=== PATIENT | female | born 1950 | race Caucasian/White ===

== ENCOUNTER 2016-09-15 15:19 | Outpatient (CLI) | payer OTHER ==
--- NOTE | 2016-09-15 18:17 | DIAGNOSTIC IMAGING REPORT ---
PROCEDURE: US BILATERAL CAROTID DOPPLER INDICATION: LT BRUIT,AMAUROSIS,HEAD INJURY,HX TIA TECHNIQUE: Color Doppler duplex imaging of the carotid and vertebral vessels. COMPARISON: None. FINDINGS: Intimal thickening of the bilateral common carotid arteries. Mild plaque formation of the bifurcations bilaterally. Right common carotid artery peak systolic velocity 46 cm/second. Right internal carotid artery peak systolic velocity 96 cm/second. Right external carotid artery peak systolic velocity 71 cm/second. Right fhymdgzg-kk-fdbbrt carotid artery ratio 2.1 Right vertebral artery peak systolic velocity 56 cm/second antegrade. Left common carotid artery peak systolic velocity 49 cm/second. Left internal carotid artery peak systolic velocity 96 cm/second. Left external carotid artery peak systolic velocity 92 cm/second. Left ynwruwsr-yf-zxgvoe carotid artery ratio 1.9 Left vertebral artery peak systolic velocity 35 cm/second antegrade. IMPRESSION: 1. Mild plaque formation of the bifurcations bilaterally without hemodynamically significant lesion 2. Bilateral ICA 16-49% stenosis Velocity criteria are extrapolated from diameter data as defined by the Society of Radiologists in Ultrasound Consensus Conference, Radiology 2003; 229; 340-346.
--- NOTE | 2016-09-15 18:17 | DIAGNOSTIC IMAGING REPORT ---
PROCEDURE: US BILATERAL CAROTID DOPPLER INDICATION: LT BRUIT,AMAUROSIS,HEAD INJURY,HX TIA TECHNIQUE: Color Doppler duplex imaging of the carotid and vertebral vessels. COMPARISON: None. FINDINGS: Intimal thickening of the bilateral common carotid arteries. Mild plaque formation of the bifurcations bilaterally. Right common carotid artery peak systolic velocity 46 cm/second. Right internal carotid artery peak systolic velocity 96 cm/second. Right external carotid artery peak systolic velocity 71 cm/second. Right cjafivpd-na-faddzi carotid artery ratio 2.1 Right vertebral artery peak systolic velocity 56 cm/second antegrade. Left common carotid artery peak systolic velocity 49 cm/second. Left internal carotid artery peak systolic velocity 96 cm/second. Left external carotid artery peak systolic velocity 92 cm/second. Left nncnyxuc-ag-xulkoi carotid artery ratio 1.9 Left vertebral artery peak systolic velocity 35 cm/second antegrade. IMPRESSION: 1. Mild plaque formation of the bifurcations bilaterally without hemodynamically significant lesion 2. Bilateral ICA 16-49% stenosis Velocity criteria are extrapolated from diameter data as defined by the Society of Radiologists in Ultrasound Consensus Conference, Radiology 2003; 229; 340-346.
--- NOTE | 2016-09-15 19:39 | DIAGNOSTIC IMAGING REPORT ---
PROCEDURE: CT HEAD WITHOUT CONTRAST INDICATION: LT BRUIT,AMAUROSIS,HEAD INJURY,HX TIA TECHNIQUE: Noncontrast axial images with sagittal and coronal reformations. COMPARISON: None. FINDINGS: Mild cortical atrophy and minor white matter chronic ischemic changes. Ventricular system is normal. No evidence of acute intracranial process. Left maxillary sinus disease. Mastoids are clear. IMPRESSION: 1. No acute intracranial abnormality 2. Mild cortical atrophy and minor white matter chronic ischemic changes 3. Findings discussed with Dr. Slater at 07:38 p.m.[facility] Time
--- NOTE | 2016-09-15 19:39 | DIAGNOSTIC IMAGING REPORT ---
PROCEDURE: CT HEAD WITHOUT CONTRAST INDICATION: LT BRUIT,AMAUROSIS,HEAD INJURY,HX TIA TECHNIQUE: Noncontrast axial images with sagittal and coronal reformations. COMPARISON: None. FINDINGS: Mild cortical atrophy and minor white matter chronic ischemic changes. Ventricular system is normal. No evidence of acute intracranial process. Left maxillary sinus disease. Mastoids are clear. IMPRESSION: 1. No acute intracranial abnormality 2. Mild cortical atrophy and minor white matter chronic ischemic changes 3. Findings discussed with Dr. Slater at 07:38 p.m.[facility] Time
--- NOTE | 2016-09-16 13:39 | DIAGNOSTIC IMAGING REPORT ---
REFERRING PHYSICIAN/PROVIDER: Mathew Slater MD CONSULTING PROFESSOR OF MARKETING: Yusuf Dasilva MD PROCEDURE: M-mode 2D echocardiography with spectral and color flow Doppler TECHNICAL QUALITY: The overall quality of the echo is fair INDICATION: MURMUR RHYTHM DURING PROCEDURE: The underlying rhythm is normal sinus rhythm with PVCs noted INTERPRETATIONS: LEFT VENTRICLE: The left ventricle is severely dilated in size. Left ventricular dimension at end diastole is 6.4 cm. The left ventricular systolic function is mild to moderately decreased with an ejection fraction of 40% with wall motion abnormalities noted in the basal inferior basal septal and basal posterior huffman the true apex is not well visualized. RIGHT VENTRICLE: The right ventricle is normal in size with normal right ventricular systolic function. ATRIA: There is severe left atrial enlargement within a volume index of 66 ml per meter squared. MITRAL VALVE: There is mild mitral regurgitation noted. AORTIC VALVE: There is at least moderate eccentric aortic regurgitation noted. The aortic valve leaflets are not well visualized a bicuspid aortic valve cannot be excluded. There is no significant aortic stenosis noted. The velocity and mean gradients were not accurate. TRICUSPID VALVE: There is trace tricuspid regurgitation noted. Unable to accurately assess right ventricular systolic pressure PULMONIC VALVE: There is trace to mild pulmonic regurgitation noted. GREAT VESSELS: The ascending aorta measures 3.1 cm which is normal. PERICARDIUM: There is no significant pericardial effusion noted. There is a normal inferior vena cava. IMPRESSION: 1. Severely dilated left ventricle with mild to moderately reduced left ventricular systolic function (LVEF = 40%) with wall motion abnormalities as noted below 2. Severe left atrial enlargement (LA volume index = 66 ml/m2) 3. At least moderate acentric posteriorly directed aortic regurgitation 4. Normal IVC size and collapse 5. Unable to estimate right ventricular systolic pressure
== END 2016-09-15 23:00 ==
LOC: US SRH 15:19
DX: I65.23 Occlusion and stenosis of bilateral carotid arteries (principal); G31.9 Degenerative disease of nervous system, unspecified; I35.1 Nonrheumatic aortic (valve) insufficiency; I51.7 Cardiomegaly; Z86.73 Personal history of transient ischemic attack (TIA), and cerebral infarction without residual deficits